=== PATIENT | female | born 1960 | race Caucasian/White ===

== ENCOUNTER → 2017-01-18 | Day surgery (SDC) | payer BC ==
[~2017-01-18] MED LIST: ASPIRIN81 M2 PO; KLONOPIN1 MG PO; LIPITOR PO; LORTAB 10-5001 EACH; METOPROLOL/HCTZ PO; NEURONTIN PO; OXYCODONE15 M1 PO; OXYCONTIN PO; OXYCONTIN40 MG; SKELAXIN
--- NOTE | ~2017-01-18 | OR ---
Unit #: [id number] #: [id number] Patient: ALEX REEVES [id number] [address] [place], [place] [address] [id number] O MR#: [id number] NAME: ALEX REEVES ROOM: Date of Procedure: 01/18/2017 Admission Date: 01/18/2017 Surgeon: Russ Ramey M.D. : 1960 Attending Physician: Russ Ramey M.D. Primary Care Physician: Marita Gibson M.D. OPERATIVE REPORT PREOPERATIVE DIAGNOSES Postlaminectomy, degenerative disk disease, back pain, radiculopathy. POSTOPERATIVE DIAGNOSES Postlaminectomy, degenerative disk disease, back pain, radiculopathy. PROCEDURE PERFORMED Lumbar epidural steroid injection with intravenous sedation and fluoroscopic guidance for needle localization. INDICATIONS FOR PROCEDURE The patient is a 56-year-old female with worsening radicular pain in her bilateral lower extremities. She had a prior back surgery. She has adjacent level disease, which has worsened somewhat. Symptoms complex is consistent with radicular irritation. She failed some of the rehab medications. Plan is for a trial of epidural steroid injection at T8-9. Central disk herniation is causing some stenosis. This could be contributing to her issues with poor gait, but based on her examination and pathology, pain was at the lower lumbar spine with more significant etiology of her problem. DESCRIPTION OF PROCEDURE The patient was placed in a seated position. Standard monitors were applied. 2 mg of Versed were given for sedation and anxiolysis, which were adequate. Vital signs remained stable. Sterile prep and drape then of the lumbar area was performed. The skin then at the L3-4 level was localized with 1% lidocaine. An 18-gauge ECO Filmstead needle was then advanced via loss of resistance technique and fluoroscopic guidance in toward the epidural space. After confirming proper positioning with fluoroscopy and radiographic contrast, dose of 80 mg Depo-Medrol and 4 mL of 0.5% lidocaine were deposited. The patient tolerated the procedure otherwise well and was discharged to recovery room in stable condition. Dictated by... Russ Ramey M.D. LHP/salima TD: 01/19/2017 04:49 Unit #: [id number] #: [id number] Patient: ALEX REEVES JOB #: [id number] OPERATIVE REPORT Page 1 of 1 X Russ Ramey MD X PROCEDURE OPERATIVE NOTE
== END | disposition home or self-care (01) ==
LOC: CCSC 07:52
DX: M96.1 Postlaminectomy syndrome, not elsewhere classified (principal); M51.16 Intervertebral disc disorders with radiculopathy, lumbar region
CPT/HCPCS: J1040; J2250

== ENCOUNTER → 2017-01-25 | Day surgery (SDC) | payer BC ==
--- NOTE | ~2017-01-25 | OR ---
Unit #: [id number] #: [id number] Patient: ALEX REEVES [id number] [address] [address] [id number] O MR#: [id number] NAME: ALEX REEVES ROOM: Date of Procedure: 01/25/2017 Admission Date: 01/25/2017 Surgeon: Russ Ramey M.D. : 1960 Attending Physician: Russ Ramey M.D. Primary Care Physician: Marita Gibson M.D. OPERATIVE REPORT PREOPERATIVE DIAGNOSES Post-laminectomy syndrome, degenerative disk disease, back pain, radiculopathy. POSTOPERATIVE DIAGNOSES Post-laminectomy syndrome, degenerative disk disease, back pain, radiculopathy. PROCEDURE PERFORMED Lumbar epidural steroid injection with intravenous sedation and fluoroscopic guidance for needle localization. INDICATIONS FOR PROCEDURE The patient is a 56-year-old female with worsening back and lower extremity pains due to adjacent level disease above her prior laminectomy and fusion. Initial epidural steroid injection in the last week after having failed other attempts to conservative measures resulted in 40% to 50% settling of her symptom complex after initial small flare. She is sleeping better and has greater tolerance of activity. Based on her good partial response, continued symptomatology, and treatment options, we are going to proceed with a second injection today. DESCRIPTION OF PROCEDURE The patient was placed in a seated position. Standard monitors were applied. 2 mg of Versed were given for sedation and anxiolysis, which were adequate. Vital signs remained stable. Sterile prep and drape then of the lumbar area was performed. The skin then at the L3-L4 level was localized with 1% lidocaine. An 18-gauge Bookyatead needle was then advanced via loss of resistance technique and fluoroscopic guidance in toward the epidural space. After confirming proper positioning with fluoroscopy and radiographic contrast, 80 mg of Depo-Medrol and 6 mL of 0.125% bupivacaine were deposited. The patient tolerated the procedure otherwise well and was discharged to the recovery room in stable condition. Dictated by... Gm Leger/salima Unit #: [id number] #: [id number] Patient: ALEX REEVES TD: 01/26/2017 01:38 JOB #: [id number] OPERATIVE REPORT Page 1 of 1 X Russ Ramey MD X PROCEDURE OPERATIVE NOTE
== END | disposition home or self-care (01) ==
LOC: CCSC 08:47
DX: M96.1 Postlaminectomy syndrome, not elsewhere classified (principal); M51.16 Intervertebral disc disorders with radiculopathy, lumbar region
CPT/HCPCS: J1040; J2250

== ENCOUNTER → 2017-02-01 | Day surgery (SDC) | payer BC ==
--- NOTE | ~2017-02-01 | OR ---
Unit #: [id number] #: [id number] Patient: ALEX REEVES [id number] [address] [place], [place] [address] [id number] O MR#: [id number] NAME: ALEX REEVES ROOM: Date of Procedure: 02/01/2017 Admission Date: 02/01/2017 Surgeon: Russ Ramey M.D. : 1960 Attending Physician: Russ Ramey M.D. Primary Care Physician: Marita Gibson M.D. OPERATIVE REPORT PREOPERATIVE DIAGNOSES Post-laminectomy, postfusion, degenerative disk disease, back pain, radiculopathy. POSTOPERATIVE DIAGNOSES Post-laminectomy, postfusion, degenerative disk disease, back pain, radiculopathy. PROCEDURE PERFORMED Lumbar epidural steroid injection with intravenous sedation and fluoroscopic guidance for needle localization. INDICATIONS FOR PROCEDURE The patient is a 56-year-old female with worsening back pain and some radiculopathy secondary to adjacent level disease above her prior L3 through S1 surgical changes. Workup demonstrated multilevel pathology nonsurgical in nature. She also does have a central disk herniation at the T8-T9 level. She failed to settle with conservative measures. So, plan is for trial of epidural steroids. Two were done at this point over the last few weeks, they have given additive improvement in her back and leg pain. Based on good partial response, continued symptoms, pathology, symptomatology, and other treatment options, we are going to proceed with a final injection at this point. DESCRIPTION OF PROCEDURE The patient was placed in the seated position. Standard monitors were applied. 2 mg of Versed were given for sedation and anxiolysis, which were adequate. Vital signs remained stable. Sterile prep and drape then of the lumbar area was performed. The skin at the L2-L3 level was localized with 1% lidocaine. An 18-gauge ConsortiEXtead needle was then advanced via loss of resistance technique and fluoroscopic guidance in toward the epidural space. The patient did not complain of any pain or paresthesia during needle advancement. After confirming proper positioning with fluoroscopy and radiographic contrast, 80 mg of Depo-Medrol and 4 mL of 0.125% bupivacaine were deposited. The patient tolerated the procedure otherwise well and was discharged to recovery room in stable condition. Dictated by... Russ Ramey M.D. Unit #: [id number] #: [id number] Patient: ALEX REEVES JOSE/salima TD: 02/01/2017 22:58 JOB #: [id number] OPERATIVE REPORT Page 1 of 1 X Russ Ramey MD X PROCEDURE OPERATIVE NOTE
== END | disposition home or self-care (01) ==
LOC: CCSC 08:59
DX: M96.1 Postlaminectomy syndrome, not elsewhere classified (principal); M51.16 Intervertebral disc disorders with radiculopathy, lumbar region
CPT/HCPCS: J1040; J2250

== ENCOUNTER → 2017-04-10 | Outpatient (CLI) | payer BC ==
--- NOTE | ~2017-04-10 | US128 ---
[address] [facility]. [place], [place] [address] [id number] O MR#: [id number] Acc #: [id number] NAME: ALEX REEVES : 1960 SEX: F STUDY DATE/TIME: 04/10/2017 13:37 UNIT: CGUS ROOM: STUDY DESCRIPTION: Thyroid Attending Physician: Marita Gibson M.D. Referring Physician: Marita Gibson M.D. Ordering Physician: Marita Gibson M.D. Primary Care Physician: Marita Gibson M.D. MEDICAL IMAGING REPORT This report is preliminary unless electronic signature is present EXAM Thyroid ultrasound. INDICATIONS Difficulty swallowing. Weight loss. TECHNIQUE Sears-scale and color Doppler sonographic images were obtained through the thyroid gland. FINDINGS Right lobe of thyroid gland measures 4.1 x 1.5 x 1.3 cm, left lobe measures 3.1 x 1.5 x 1.6 cm. Multiple cysts are identified within both lobes of the thyroid gland, single largest is seen within the right lobe of the thyroid gland and measures 1.0 x 0.5 x 0.5 cm. Overall thyroid parenchyma is somewhat heterogeneous. IMPRESSION Bilateral thyroid cysts. Dictated by... Sara Michael M.D. THIS IS AN ELECTRONICALLY VERIFIED REPORT Sara Michael M.D. at 04/11/2017 5:03 PM AFF/psc TD: 04/11/2017 00:03 JOB #: [id number] MEDICAL IMAGING REPORT Page 1 of 1 COPY
== END | disposition home or self-care (01) ==
LOC: CGUS 13:14
DX: E04.2 Nontoxic multinodular goiter (principal)
CPT/HCPCS: 76536